=== PATIENT | male | born 1965 | race Caucasian/White ===

== ENCOUNTER 2018-02-22 00:53 | Emergency (ER) | payer OTHER ==
[~2018-02-22] VITALS: Ht 170.2 cm; Wt 72.6 kg
== END 2018-02-22 10:26 | disposition home or self-care (01) ==
LOC: ER 00:53
DX: R55 Syncope and collapse (principal)

== ENCOUNTER 2018-04-27 16:35 | Emergency (ER) | payer OTHER ==
[~2018-04-27] VITALS: Ht 170.2 cm; Wt 70.3 kg
[2018-04-27] MEDS ORDERED: AVAPRO75 MG PO (17:04)
[2018-04-27] MEDS ORDERED: LIPITOR40 MG PO (17:04)
== END 2018-04-27 18:55 | disposition home or self-care (01) ==
LOC: ER 16:35
DX: L08.9 Local infection of the skin and subcutaneous tissue, unspecified (principal)